=== PATIENT | female | born 1955 | race Caucasian/White ===

== ENCOUNTER 2016-08-26 16:04 | Emergency (ER) | payer OTHER, MEDICAID ==
[2015-07-27 11:59] VITALS: Ht 152.4 cm; Wt 108.9 kg
[~2016-08-26] VITALS: Ht 152.4 cm; Wt 108.9 kg
[2016-08-26 16:04] VITALS: BP 203/91; PULSE 79; RESP 14; TEMP 98; O2SAT 96
[~2016-08-26 16:04] MED LIST: CARV6.2554 PO; CEPH-568 PO; FURO-150 PO; GLIP10TA11 PO; GLU500 PO; NOR10 PO; VALS160T2 PO
[2016-08-26] MEDS ORDERED: cloNIDine HCL 0.1 MG TABLET PO ONE (16:30)
[2016-08-26 16:42] LABS: EOSINOPHILS # (AUTO) 0.3 K/uL (0.0-0.4); EOSINOPHILS % (AUTO) 3.3 % (0.0-4.0); MONOCYTES # (AUTO) 0.5 K/uL (0.0-1.0); RED CELL DISTRIBUTION WIDTH 13.2 % (9.0-15.0)
[2016-08-26 16:47] LABS: CREATININE 1.24 mg/dL (0.55-1.30); POTASSIUM 4.5 mmol/L (3.5-5.1)
[2016-08-26 16:48] LABS: BASOPHILS % (AUTO) 0.3 % (0.0-2.0); HEMATOCRIT 32.5 % (36-48); LYMPHOCYTES # (AUTO) 2.5 K/uL (1.0-5.5); LYMPHOCYTES % (AUTO) 27.9 % (20.5-51.5); MEAN CORPUSCULAR HEMOGLOBIN 28 pg (27-31); MEAN CORPUSCULAR HGB CONC 34 % (32-36); MEAN CORPUSCULAR VOLUME 81 fL (79.0-98.0); MONOCYTES % (AUTO) 5.4 % (1.7-9.3); NEUTROPHILS # (AUTO) 5.5 K/uL (1.8-7.7); NEUTROPHILS % (AUTO) 63.1 % (40.0-70.0); RED BLOOD CELL COUNT(AUTO) 4.01 MIL/uL (4.2-6.2); WHITE BLOOD COUNT (AUTO) 8.8 K/uL (4.8-10.8)
[2016-08-26 16:49] LABS: INR 0.9 (0.8-1.2); PLATELET COUNT (AUTO) 251 K/uL (130-430); PROTHROMBIN TIME 9.6 SECS (9.5-12.5)
[2016-08-26 16:51] LABS: ALBUMIN 2.1 g/dL (3.4-4.8); TOTAL BILIRUBIN 0.3 mg/dL (0.0-1.0); TOTAL PROTEIN, SERUM 6.1 g/dL (6.4-8.3)
[2016-08-26] MEDS ORDERED: BACITRACIN 1 GM OINT TP ONE (17:15)
[2016-08-26 19:03] VITALS: BP 165/81; PULSE 72; RESP 18
== END 2016-08-26 18:50 | disposition home or self-care (01) ==
LOC: SED 16:04
DX: L03.115 Cellulitis of right lower limb (principal); E11.9 Type 2 diabetes mellitus without complications; I10 Essential (primary) hypertension
CPT/HCPCS: 36415; 73590-TC; 80053; 85025; 85610-TC; 85730-TC; 99285

== ENCOUNTER 2016-11-03 14:50 | Emergency (ER) | payer OTHER, MEDICAID ==
[~2016-11-03] VITALS: Ht 152.4 cm; Wt 72.6 kg
[~2016-11-03 14:50] MED LIST changes: -CEPH-568 PO; -VALS160T2 PO
[2016-11-03 14:54] VITALS: BP_SYST 197
[2016-11-03 16:18] LABS: BASOPHILS % (AUTO) 0.4 % (0.0-2.0); EOSINOPHILS # (AUTO) 0.1 K/uL (0.0-0.4); EOSINOPHILS % (AUTO) 1.9 % (0.0-4.0); HEMATOCRIT 30.8 % (36-48); HEMOGLOBIN 9.9 g/dL (12.0-16.0); LYMPHOCYTES # (AUTO) 1.7 K/uL (1.0-5.5); LYMPHOCYTES % (AUTO) 29.5 % (20.5-51.5); MEAN CORPUSCULAR HEMOGLOBIN 26 pg (27-31); MEAN CORPUSCULAR HGB CONC 32 % (32-36); MEAN CORPUSCULAR VOLUME 80 fL (79.0-98.0); MONOCYTES # (AUTO) 0.3 K/uL (0.0-1.0); NEUTROPHILS # (AUTO) 3.7 K/uL (1.8-7.7); NEUTROPHILS % (AUTO) 63.2 % (40.0-70.0); PLATELET COUNT (AUTO) 266 K/uL (130-430); RED BLOOD CELL COUNT(AUTO) 3.83 MIL/uL (4.2-6.2); RED CELL DISTRIBUTION WIDTH 13.6 % (9.0-15.0); WHITE BLOOD COUNT (AUTO) 5.8 K/uL (4.8-10.8)
[2016-11-03 16:22] LABS: CALCIUM 8.3 mg/dL (8.4-11.0); CREATININE 1.53 mg/dL (0.55-1.30)
[2016-11-03 16:26] LABS: ALBUMIN 1.7 g/dL (3.4-4.8); TOTAL BILIRUBIN 0.1 mg/dL (0.0-1.0); TOTAL PROTEIN, SERUM 5.3 g/dL (6.4-8.3)
[2016-11-03] MEDS ORDERED: BACITRACIN 1 GM OINT TP ONE (18:37)
[2016-11-03 21:30] VITALS: BP_SYST 170
== END 2016-11-03 21:30 | disposition home or self-care (01) ==
LOC: SED 14:50
DX: L03.115 Cellulitis of right lower limb (principal); J44.9 Chronic obstructive pulmonary disease, unspecified; E11.9 Type 2 diabetes mellitus without complications; I10 Essential (primary) hypertension; Z86.79 Personal history of other diseases of the circulatory system
CPT/HCPCS: 36415; 80053; 83605; 85025; 87040-TC; 93970; 99285

== ENCOUNTER 2017-03-01 20:06 | Inpatient (IN) | payer OTHER, MEDICAID ==
[~2017-03-01] VITALS: Ht 152.4 cm; Wt 111.1 kg
--- NOTE | 2017-03-01 20:08 | NUR ---
Placed in room 1. Placed on media monitor, blood pressure machine and pulse oximeter. To gown for exam. Side rails up. Report given to Gurpreet JACKSON.
[2017-03-01 20:10] VITALS: BP_SYST 185
--- NOTE | 2017-03-01 20:10 | NUR ---
Pt states having nonradiating pain in chest area for approximately 1 hour prior to ER visit. Pt states pain at time of incident was 10/10, but currently denies chest pain and SOB. Pt AAOx4. Skin breakdown noted to bilateral lower extremities, +2 pitting edema noted bilaterally. Pt denies any other complaints.
--- NOTE | 2017-03-01 20:11 | NUR ---
ER Dr. Bronson at bedside examining patient.
--- NOTE | 2017-03-01 20:36 | NUR ---
# 22 gauge angiocath placed to left forearm. Use of asceptic technique. Blood return noted. Flushed with 10 cc of normal saline. No evidence of infiltration noted. Patient tolerated well.
[2017-03-01 20:40] LABS: BASOPHILS % (AUTO) 0.6 % (0.0-2.0); EOSINOPHILS # (AUTO) 0.3 K/uL (0.0-0.4); EOSINOPHILS % (AUTO) 3.8 % (0.0-4.0); HEMATOCRIT 30.5 % (36-48); HEMOGLOBIN 9.6 g/dL (12.0-16.0); LYMPHOCYTES # (AUTO) 1.9 K/uL (1.0-5.5); LYMPHOCYTES % (AUTO) 25.9 % (20.5-51.5); MEAN CORPUSCULAR HEMOGLOBIN 26 pg (27-31); MEAN CORPUSCULAR HGB CONC 32 % (32-36); MEAN CORPUSCULAR VOLUME 82 fL (79.0-98.0); MONOCYTES # (AUTO) 0.4 K/uL (0.0-1.0); MONOCYTES % (AUTO) 5.5 % (1.7-9.3); NEUTROPHILS # (AUTO) 4.7 K/uL (1.8-7.7); NEUTROPHILS % (AUTO) 64.2 % (40.0-70.0); PLATELET COUNT (AUTO) 337 K/uL (130-430); RED BLOOD CELL COUNT(AUTO) 3.72 MIL/uL (4.2-6.2); RED CELL DISTRIBUTION WIDTH 14.1 % (9.0-15.0); WHITE BLOOD COUNT (AUTO) 7.3 K/uL (4.8-10.8)
[2017-03-01 20:44] LABS: INR 0.9 (0.8-1.2); PROTHROMBIN TIME 9.8 SECS (9.5-12.5)
[2017-03-01 20:45] LABS: CALCIUM 8.4 mg/dL (8.4-11.0); CREATININE 1.85 mg/dL (0.55-1.30); POTASSIUM 4.2 mmol/L (3.5-5.1)
[2017-03-01 20:49] LABS: ALBUMIN 1.8 g/dL (3.4-4.8); TOTAL BILIRUBIN 0.2 mg/dL (0.0-1.0)
[2017-03-01] MEDS ORDERED: LABETALOL 100 MG/ 20ML VIAL IVP ONE (21:00)
[2017-03-01 21:35] LABS: BILIRUBIN,URINE NEGATIVE (NEGATIVE); BLOOD, URINE 2+ (NEGATIVE); CLARITY/URINE HAZY (CLEAR); COLOR,URINE YELLOW (YELLOW); GLUCOSE,URINE 2+ (NEGATIVE); KETONES,URINE NEGATIVE (NEGATIVE); NITRITE, URINE NEGATIVE (NEGATIVE); PH,URINE 5.5 (5.0-8.0); PROTEIN URINE 3+ (NEGATIVE); UROBILINOGEN,URINE 0.2 (0.2-1.0)
[2017-03-01 21:38] LABS: LEUKOCYTE ESTERASE ,URINE 2+ (NEGATIVE)
[2017-03-01 21:46] LABS: BACTERIA,URINE FEW /HPF (None Seen); MUCUS,URINE None Seen /LPF (None Seen); RBC,URINE NONE SEEN /HPF (0-3); WBC,URINE 20-50 /HPF (0-3); YEAST,URINE Moderate /HPF (None Seen)
--- NOTE | 2017-03-01 22:08 | NUR ---
Patient stable, denies any complaints at this time.
[2017-03-01] MEDS ORDERED: NS 500 ML IV ONE (22:15)
[2017-03-01] MEDS ORDERED: cefTRIAXone 1 GM in D5W 50 ML IV ONE (22:15)
[2017-03-01] MEDS ORDERED: cefTRIAXone 1 GM VIAL ONE (22:22)
--- NOTE | 2017-03-01 23:01 | NUR ---
Medication reconciliation completed with information provided by patient. Patient denies taking any home medications for approximately 1 month.
--- NOTE | 2017-03-01 23:53 | NUR ---
Patient will be admitted to care of Dr. Boothe. Admitted to tele unit. Will go to room 117 A. Belongings list completed. Summary report printed. Report given to RENETTA Correa.
[2017-03-01 23:59] VITALS: BP_SYST 191
--- NOTE | 2017-03-01 23:59 | NUR ---
ADMISSION NOTE Received patient from ER via gurbernarda, received report from RN. Patient admitted with diagnosis of CHEST PAIN. Patient oriented to hospital routine, call light, toileting and safety-patient verbalized understanding.
[2017-03-02] MEDS ORDERED: 0.45% NACL 1,000 ML IV SCH
--- NOTE | 2017-03-02 00:20 | NUR ---
PATIENT RECEIVED FROM ADMITTING RN Patient came from ER alert, oriented X4. Son is at the bed side. She complained of chest pain "8/10", but by the time the nurse finished with accessing the pain only, the pain had subsided. BP was 191/93, re-measured: 185/76. The nurse will call the doctor for BP and pain medications, as well as diet order. IVF NS will be hung to run at 100cc/hr per MD order. Patient has multiple small wounds/ruptured blisters on her lower legs. Pictures will be taken. Fall precautions in place.
--- NOTE | 2017-03-02 01:14 | NUR ---
PAGED: I PAGED DR. OCHOA @[phone] I SPOKE WITH SIOMARA LEI CALLED BACK @ [phone]
[2017-03-02] MEDS ORDERED: MORPHINE 2 MG/ML INJ. SYRINGE IVP PRN (01:30)
--- NOTE | 2017-03-02 01:39 | NUR ---
Cardio Consultation Paged Reason for consultation: Chest Pain Was consult called: Yes Person who was notified: Public Relations Sales [employer] 22 Consulting Physician: Dr Mejia; Dr Brand is on-call Inspector Advanced Composite Inspector Advanced Composite Specialty: Cardiology Ordered By: Dr Boothe
[2017-03-02] MEDS: cloNIDine HCL 0.1 MG TABLET PO PRN ×3 (02:06→19:54)
--- NOTE | 2017-03-02 02:30 | NUR ---
ROUNDS Patient in bed sleeping in sitting position. Per patient she has a history of macular degeneration and she is not supposed to lay down flat, because that would increase her eye pressure and some blood vessels might rupture (her doctor's words). No pain noted, no respiratory distress. Addendum: 03/02/17 at 0832 by Lisa Marte RN Dr. Gillette was paged re: BP and pain medication. He ordered Clonidine 0.1 mg q4h PRN for systolic BP>160 and morphine 1 mg q6h PRN for severe pain 7-10
--- NOTE | 2017-03-02 03:30 | NUR ---
BP IS LOWER The nurse re-measured the BP and the BP (after Clonidine PRN administration earlier) was 154/71, HR 78. No pain noted. The patient asked for sandwich, the nurse provided wheat sandwich and a sugar free jello.
[2017-03-02 04:36] VITALS: BP_SYST 154
--- NOTE | 2017-03-02 05:40 | NUR ---
ROUNDS Patient in bed sleeping. No pain or distress noted. Fall precautions in place.
--- NOTE | 2017-03-02 08:00 | NUR ---
AM Initial Notes AM Initial Notes Pt aaox4 with no complaints of pain or discomfort. No distress noted. cementer in place. Bilateral lower legs appear edematous with some lesions and little wounds weeping. Kept legs elevated on a pillow with heels floating. Fall and safety precautions enforced. Encouraged to call for assistance. Call light within reach. Will monitor.
[2017-03-02 08:21] VITALS: BP_SYST 167
--- NOTE | 2017-03-02 08:31 | NUR ---
Catapres Medicated patient with Catapres for elevated blood pressure 167/74. Will continue to monitor.
--- NOTE | 2017-03-02 08:43 | NUR ---
CLOSING NOTE Patient in bed resting. No pain or distress noted. IVF NS at 100 cc/hr running smoothly. Report given to the day shift nurse.
[2017-03-02] MEDS: ASPIRIN 81 MG TAB.CHEW PO SCH (09:17)
--- NOTE | 2017-03-02 09:21 | NUR ---
Nutrition Update Gregory Scale 16 noted. Pt admitted for chest pain and UTI. Diet: [facility] BMI: 43.4 kg/m2 RD to follow per nutrition care standards.
--- NOTE | 2017-03-02 09:46 | NUR ---
Dr. Sunday TODD doing rounds. Plan of care discussed.
--- NOTE | 2017-03-02 10:00 | NUR ---
Rounds Pt awake resting in bed. No complaints of pain or discomfort. Will continue to monitor.
[2017-03-02 10:24] LABS: CHOLESTEROL 152 mg/dL (<200); HDL CHOLESTEROL 48 mg/dL (>55); LDL CHOLESTEROL 83 mg/dL (<100); TRIGLYCERIDES 187 mg/dL (30-150)
[2017-03-02 11:30] VITALS: BP_SYST 158
--- NOTE | 2017-03-02 12:00 | NUR ---
rn round Pt awake resting in bed. No complaints of pain or discomfort at this time. Will continue to monitor.
[2017-03-02] MEDS: ENOXAPARIN SODIUM 30 MG/0.3 ML SYRINGE SUBCUT SCH (13:26)
[2017-03-02 16:02] VITALS: BP_SYST 116; BP_SYST 150
[2017-03-02 19:45] VITALS: BP_SYST 189
--- NOTE | 2017-03-02 19:49 | NUR ---
End of shift note Patient in bed A,OX4. No pain or distress noted,npo after mn and no caffein drink for stress test tomorrow, will indorse care for next shift .
--- NOTE | 2017-03-02 19:56 | NUR ---
Opening note patient in bed. alert and verbal. denies any acute distress. initial assessment reveals elevated BP. BP given with no adverse effetxcs. Safety precautions maintained. Will continue to monitor.
--- NOTE | 2017-03-02 21:45 | NUR ---
medication note Patient in bed. Family by beside. physician called at 2140 hrs to to give order for accu checks, IV fluids and sliding insulin. Safety measures in place. continue to monitor
[2017-03-02] MEDS: cefTRIAXone 1 GM in D5W 50 ML IV SCH (22:27)
--- NOTE | 2017-03-02 22:35 | NUR ---
medication note Pt insulin and antibiotic given. no adverse effects noted. SE explained. Pt verbalizes understanding. Will continue to monitor
[2017-03-02] MEDS: D5NS 1,000 ML IV SCH (22:46)
[2017-03-02] MEDS: INSULIN ASPART 100 UNITS/ML, 10 ML VIAL (NovoLOG) SUBCUT PRN (22:47)
[2017-03-03] VITALS (7 sets, daily range): BP systolic 150–179
[2017-03-03] MEDS: cloNIDine HCL 0.1 MG TABLET PO PRN (00:50)
--- NOTE | 2017-03-03 00:50 | NUR ---
RN rounds pt is bed. vital signs assessment reveal elevated BP. PRN klonodin given Side effects explained to patient. pt verbalizes understanding. Patient continues to be NPO. Pt repositioned for comfort. Safety measure in place. Call light within reach. Continues to monitor.
--- NOTE | 2017-03-03 03:20 | NUR ---
RN round Patient in bed comfortably sleeping. No signs of distress noted. Safety precautions in place. call light within reach. Will continue to monitor
--- NOTE | 2017-03-03 06:48 | NUR ---
Closing note Pt scheduled for stress test this AM, consent forms signed in chart.. pt stayed NPO since midnight. Acc checks orders received. Safety precautions upheld during shift. No injury was incurred during shift. pain denied any chest pain during shift. Will endorse to next shift.
--- NOTE | 2017-03-03 08:07 | NUR ---
INATAL SHIFT NOTE Pt aaox4 with no complaints of pain or discomfort. No distress noted. threat monitoring analyst in place.npo for stress test. Bilateral lower legs appear edematous with some lesions and little wounds weeping. Kept legs elevated on a pillow with heels floating. Fall and safety precautions enforced. Encouraged to call for assistance. Call light within reach. Will monitor.
[2017-03-03] MEDS ORDERED: REGADENOSON 0.4 MG/5 ML SYRINGE IVP ONE (09:00)
[2017-03-03] MEDS: LISINOPRIL 5 MG TABLET PO SCH (10:06)
[2017-03-03] MEDS: ENOXAPARIN SODIUM 30 MG/0.3 ML SYRINGE SUBCUT SCH (10:06)
[2017-03-03] MEDS: ASPIRIN 81 MG TAB.CHEW PO SCH (10:07)
[2017-03-03] MEDS: amLODIPine BESYLATE 5 MG TABLET PO SCH (10:07)
--- NOTE | 2017-03-03 12:00 | NUR ---
RN round Patient in bed . No signs of distress noted. Safety precautions in place. call light within reach. Will continue to monitor
[2017-03-03] MEDS: INSULIN ASPART 100 UNITS/ML, 10 ML VIAL (NovoLOG) SUBCUT PRN ×2 (12:10→17:24)
[2017-03-03] MEDS ORDERED: CARVEDILOL 6.25 MG TABLET (COREG) PO ONE (13:15)
--- NOTE | 2017-03-03 14:00 | NUR ---
RN round Patient in bed comfortably sleeping. No signs of distress noted. Safety precautions in place. call light within reach. Will continue to monitor.
[2017-03-03] MEDS: D5NS 1,000 ML IV SCH (17:19)
--- NOTE | 2017-03-03 18:03 | NUR ---
End of shift note Patient in bed A,OX4. No pain or distress noted,family at bed side.all need meat throughout the shift. will indorse care for next shift .
--- NOTE | 2017-03-03 19:30 | NUR ---
notes received the pt from the day nurse.pt a/a/ox4 no c/o pain orSOB iv to lt forearm intact ,no redness or swelling noted.monitor in place and shows SR,pt with 3 plus edema to lower extremities call light within reach,safety measures in progress.continue to monitor.
--- NOTE | 2017-03-03 21:30 | NUR ---
notes pt watching tv with no complaints.accucheck was 198,no insulin needed per s/s.
[2017-03-03] MEDS: CARVEDILOL 6.25 MG TABLET (COREG) PO SCH (21:48)
[2017-03-03] MEDS: cefTRIAXone 1 GM in D5W 50 ML IV SCH (23:08)
--- NOTE | 2017-03-03 23:17 | NUR ---
notes pt resting with no complaints.call light within reach.continue to monitor.
[2017-03-04] VITALS (7 sets, daily range): BP systolic 143–193
--- NOTE | 2017-03-04 01:30 | NUR ---
notes pt sleeping,call light within reach.continue to monitor.
--- NOTE | 2017-03-04 03:32 | NUR ---
notes pt awaken and repositioned with pillow support.no c/o chest pain or sob.continue to monitor.
--- NOTE | 2017-03-04 05:09 | NUR ---
notes pt sleeping,call light within reach,continue to monitor.
[2017-03-04] MEDS: INSULIN ASPART 100 UNITS/ML, 10 ML VIAL (NovoLOG) SUBCUT PRN ×4 (06:18→21:20)
--- NOTE | 2017-03-04 06:41 | NUR ---
CLOSING NOTES PT AWAKE ,ALERT NO C/O PAIN OR SOB.ACCUCHECK WAS 283,INSULIN GIVEN PER S/S.WILL ENDORSE THE CARE OF THE PT TO THE DAY NURSE.
[2017-03-04] MEDS: D5NS 1,000 ML IV SCH ×2 (07:35→12:58)
--- NOTE | 2017-03-04 07:55 | NUR ---
AM ROUNDS: Patient is oriented x4. Denies chest pain. Breathing is even, non labored. Patient is aware that she is receiving IV Rocephin for the treatment of UTI. IV on the left wrist is infiltrated, stopped IV infusion, wants IV inserted after breakfast. Bilateral lower extremities are elevated on a pillow. Noted with erythema, swollen with 3+ edema. Legs noted with discoloration and blisters in the left leg. Patient states its a chronic problem for her and she has home health nurse for wound care. Call light within reach.
[2017-03-04] MEDS: ENOXAPARIN SODIUM 30 MG/0.3 ML SYRINGE SUBCUT SCH (09:06)
[2017-03-04] MEDS: ASPIRIN 81 MG TAB.CHEW PO SCH (09:06)
[2017-03-04] MEDS: amLODIPine BESYLATE 5 MG TABLET PO SCH (09:07)
[2017-03-04] MEDS: CARVEDILOL 6.25 MG TABLET (COREG) PO SCH (09:07)
[2017-03-04] MEDS: LISINOPRIL 5 MG TABLET PO SCH (09:07)
--- NOTE | 2017-03-04 09:27 | NUR ---
IV site start: Inserted gauge 22 on the right arm with blood return on first attempt. IV fluids resumed. Old IV removed and covered with 2x2. No bleeding noted.
--- NOTE | 2017-03-04 11:30 | NUR ---
Rounds: Assisted with bedpan. Skin on the buttocks is intact. Able to turn to sides without assist..
--- NOTE | 2017-03-04 13:30 | NUR ---
Rounds: Patient is resting. No signs of complaints of pain at this time
--- NOTE | 2017-03-04 15:04 | NUR ---
Dietitian Recommendations * [facility] per LP, RD Please refer to Nutrition Assessment for details.
[2017-03-04] MEDS: cloNIDine HCL 0.1 MG TABLET PO PRN (16:05)
[2017-03-04 17:10] LABS: ALBUMIN 1.6 g/dL (3.4-4.8); CALCIUM 7.7 mg/dL (8.4-11.0); CREATININE 1.9 mg/dL (0.55-1.30); POTASSIUM 4.4 mmol/L (3.5-5.1)
[2017-03-04] MEDS: hydrALAZINE HCL 20 MG/ML VIAL IVP PRN (17:31)
--- NOTE | 2017-03-04 17:34 | NUR ---
Elevated BP: BP is 171/73, hydralazine 10 mg IVP given.
[2017-03-04 17:50] LABS: TOTAL BILIRUBIN 0.1 mg/dL (0.0-1.0)
--- NOTE | 2017-03-04 18:08 | NUR ---
End of Shift: Needs attended. No change in assessment.
--- NOTE | 2017-03-04 19:20 | NUR ---
PM assessment and report Patient awake, alert, oriented x4. Sitting up in bed watching television. Patient denies any chest pain at this time. Bed alarm on and in lowest position.
[2017-03-04] MEDS: CARVEDILOL 12.5 MG TABLET (COREG) PO SCH (21:14)
[2017-03-04] MEDS: cefTRIAXone 1 GM in D5W 50 ML IV SCH (21:20)
--- NOTE | 2017-03-04 22:06 | NUR ---
Rounds Patient awake and alert, in bed watching television. Patient family at bedside for support. Patient denies any discomfort or pain. Cristhian heels offloading and patient turned to side. Bed alarm on and encourage patient to use call light which is near patient.
--- NOTE | 2017-03-04 23:24 | NUR ---
Rounds Patient resting in bed at this time. Patient denies any discomfort or pain. HOB elevated for comfort and heels offloaded with pillow. Bed alarm on, in lowest position.
[2017-03-05] VITALS: BP_SYST 155
--- NOTE | 2017-03-05 01:00 | NUR ---
Rounds Patient family at bedside for comfort. Repositioned patient and pulled up in bed. Patient denies any pain, heels offloading and feet of bed elevated for comfort. Bed in lowest position with alarm on.
[2017-03-05] MEDS: D5NS 1,000 ML IV SCH ×3 (01:09→18:50)
--- NOTE | 2017-03-05 03:00 | NUR ---
Rounds Patient asleep in bed at this time. Bed in lowest position with alarm on. Family member at bedside for support and comfort.
[2017-03-05 03:32] VITALS: BP_SYST 152
--- NOTE | 2017-03-05 05:00 | NUR ---
Rounds Patient resting at this time. Denies any pain. Bed in lowest position with bed alarm.
--- NOTE | 2017-03-05 06:18 | NUR ---
Closing notes Patient awake, alert, oriented x4. Blood sugar checked 194, no coverage.
[2017-03-05 08:23] VITALS: BP_SYST 171
--- NOTE | 2017-03-05 08:25 | NUR ---
INITIAL NOTE RECEIVED PT AAOX4 IN NO ACUTE DISTRESS. DENIES ANY CP AT THIS TIME. TELE NSR ON THE MONITOR. IVF INFUSING WELL INTO RT FA, NO S/S OF INFILTRATION NOTED. PT'S SON AT BEDSIDE AT THIS TIME. DISCUSSED WITH PT POC FOR THE DAY INCLUDING MEDICATIONS, WOUND CARE CONSULT AND PENDING RESULTS FOR THE CAL SCAN. PT VERBALIZED UNDERSTANDING. BED IN LOWEST POSITION WITH SIDE RAILS UP X2 AND CALL LIGHT WITHIN REACH. PT ENCOURAGED TO USE CALL LIGHT FOR ASSISTANCE. VERBALIZED UNDERSTANDING
[2017-03-05] MEDS: ASPIRIN 81 MG TAB.CHEW PO SCH (08:52)
[2017-03-05] MEDS: CARVEDILOL 12.5 MG TABLET (COREG) PO SCH ×2 (08:53→22:24)
[2017-03-05] MEDS: amLODIPine BESYLATE 10 MG TABLET PO SCH (08:53)
[2017-03-05] MEDS: ENOXAPARIN SODIUM 30 MG/0.3 ML SYRINGE SUBCUT SCH (08:54)
[2017-03-05] MEDS: LISINOPRIL 5 MG TABLET PO SCH (08:54)
--- NOTE | 2017-03-05 11:16 | NUR ---
ROUNDS PT NOTED TO BE SLEEPING AT THIS TIME IN NO ACUTE DISTRESS. IVF INFUSING WELL. CALL PLACED TO DR. ROMAN REGARDING POSITIVE CAL SCAN RESULTS. WILL WAIT FOR RETURN CALL. BED IN LOWEST POSITION WITH SIDE RAILS UP X3 AND CALL LIGHT WITHIN REACH. WILL CONTINUE TO MONITOR
[2017-03-05 12:00] VITALS: BP_SYST 183
[2017-03-05] MEDS: hydrALAZINE HCL 20 MG/ML VIAL IVP PRN (12:06)
[2017-03-05] MEDS: INSULIN ASPART 100 UNITS/ML, 10 ML VIAL (NovoLOG) SUBCUT PRN ×3 (12:08→22:38)
--- NOTE | 2017-03-05 12:47 | NUR ---
ROUNDS PT SITTING UP EATING LUNCH AT THIS TIME IN NO ACUTE DISTRESS. DENIES AT CP AT THIS TIME. CALL LIGHT WITHIN REACH. ENCOURAGED PT TO USE CALL LIGHT FOR ASSISTANCE. VERBALIZED UNDERSTANDING
--- NOTE | 2017-03-05 15:03 | NUR ---
ROUNDS PT SITTING UP WATCHING TELEVISION, NOTED TO BE CRYING. PT STATED SEATER ASSEMBLER SAW HER AND TOLD HER THAT HER LEXISCAN WAS ABNORMAL. PT STATES SHE IS VERY SCARED AND FEELS THAT EVERYTHING IS GOING WRONG. SAT WITH PT AND PROVIDED EMOTIONAL SUPPORT.
[2017-03-05 15:59] LABS: CALCIUM 7.9 mg/dL (8.4-11.0); CREATININE 1.88 mg/dL (0.55-1.30); POTASSIUM 4.3 mmol/L (3.5-5.1); TOTAL BILIRUBIN 0.1 mg/dL (0.0-1.0)
[2017-03-05 16:08] LABS: ALBUMIN 1.5 g/dL (3.4-4.8)
--- NOTE | 2017-03-05 16:11 | NUR ---
ROUNDS PT SITTING UP IN BED WATCHING TV AT THIS TIME. DENIES ANY CP, JUST ANXIOUS ABOUT ANGIOGRAM. EMOTIONAL SUPPORT PROVIDED.
--- NOTE | 2017-03-05 16:11 | NUR ---
CONSULT RENAL RENAL FAILURE DR LEI [phone] S/W [facility]ERESE OFFICE @ 1768
[2017-03-05 17:20] VITALS: BP_SYST 165
--- NOTE | 2017-03-05 18:40 | NUR ---
CLOSING NOTE PT HAVING RENAL ULTRASOUND AT THIS TIME. SON AT BEDSIDE. DISCUSSED POC WITH PT AND SON INCLUDING RENAL CONSULT AND POSSIBLE NEED FOR TRANSFER TO ANOTHER HOSPITAL FOR ANGIOGRAM IF NEEDED. PT AND SON VERBALIZED UNDERSTANDING. PT DENIES ANY CP AT THIS TIME. CALL LIGHT WITHIN REACH. PT ENCOURAGED TO USE CALL LIGHT FOR ASSISTANCE. VERBALIZED UNDERSTANDING. WILL ENDORSE TO NOC SHIFT.
[2017-03-05 20:00] VITALS: BP_SYST 178
--- NOTE | 2017-03-05 20:00 | NUR ---
INITIAL NOTE Pt awake and alert in no apparent distress. Sitting in bed with son at bedside. IV running well to R FA at 90mls/hr. Call sanchez within reach. Encouraged pt to use call sanchez when in need. Verbalized understanding. Will continue to monitor.
[2017-03-05] MEDS ORDERED: ACETYLCYSTEINE 20% 800 MG/4 ML VIAL (ORAL) PO ONE (22:15)
--- NOTE | 2017-03-05 22:15 | NUR ---
ROUNDS Pt awake and alert. Watching television in no distress. Repositioned legs for comfort. Refilled water pitcher per pts request. Discussed with pt possibility of transfer to another hospital for angiogram. Pt verbalized understanding. Will continue to monitor.
[2017-03-05] MEDS: hydrALAZINE HCL 10 MG TABLET PO SCH (22:25)
[2017-03-05] MEDS: cefTRIAXone 1 GM in D5W 50 ML IV SCH (22:25)
[2017-03-05] MEDS ORDERED: FUROSEMIDE 111.11 MG in D5W 90 ML IV SCH (23:30)
[2017-03-06] VITALS (7 sets, daily range): BP systolic 132–173
--- NOTE | 2017-03-06 00:10 | NUR ---
Notes recently visited patient. New iV inserted to RW 22G. Patient recently started on Lasix drip 5mg/hr and albumin(x 3 doses). Per Cath scheduled in [facility] will be postponed 1-2 days until edema is resolved- patient and family made aware. Patient denies pain at this time. NO SOB noted. Call light within reach. Will continue to monitor.
[2017-03-06] MEDS ORDERED: FUROSEMIDE IV SCH (00:45)
[2017-03-06] MEDS ORDERED: D5W IV SCH (00:45)
[2017-03-06] MEDS ORDERED: FUROSEMIDE 40 MG/4 ML VIAL ONE (00:56)
[2017-03-06] MEDS: ALBUMIN HUMAN 25% 50 ML IV SCH ×3 (01:16→11:52)
[2017-03-06] MEDS: hydrALAZINE HCL 20 MG/ML VIAL IVP PRN (01:22)
[2017-03-06] MEDS ORDERED: FUROSEMIDE 100 MG in D5W 90 ML IV SCH (01:30)
--- NOTE | 2017-03-06 02:15 | NUR ---
Notes Patient sleeping at this time. No s/s of pain or discomfort noted. No SOB noted. IV site patent, flushes well, infusing lasix drip as ordered. Patient assisted in using bedpan, voided adequate urine. Call light within reach. Will continue to monitor.
--- NOTE | 2017-03-06 04:30 | NUR ---
Notes Patient sleeping at this time. No s/s of pain or discomfort noted. No SOB noted. Son at bedside. Call light within reach. Will continue to monitor.
--- NOTE | 2017-03-06 06:34 | NUR ---
Closing Notes Patient recently repositioned in bed. Accucheck done, no insulin coverage needed. No s/s of hypo/hyperglycemia. No SOB noted. IV site patent, flushes well, infusing Lasix and albumin as ordered. Call light within reach. Will continue to monitor.
[2017-03-06 07:23] LABS: ALBUMIN 1.7 g/dL (3.4-4.8); CALCIUM 8.1 mg/dL (8.4-11.0); CREATININE 1.86 mg/dL (0.55-1.30); POTASSIUM 4.2 mmol/L (3.5-5.1); THYROID STIMULATING HORMONE 3.18 uIu/mL (0.34-4.82); TOTAL BILIRUBIN 0.1 mg/dL (0.0-1.0)
--- NOTE | 2017-03-06 08:00 | NUR ---
OPENING NOTES PATIENT IS SITTING UP IN BED EATING BREAKFAST. BOTH LOWER EXTREMITIES HAVE CELLULITIS AND PATIENT COMPLAINS OF PAIN OF 9/10. GENERALIZED EDEMA NOTED THROUGHOUT. IV ACCESS ON THE RIGHT FOREARM WITH LASIX AND ALBUMIN INFUSING. PATIENT DOES NOT HAVE CHEST PAIN OR ANY DIFFICULTY BREATHING. CALL LIGHT IS WITHIN REACH AND INFORMED TO NOTIFY FOR ASSISTANCE. SAFETY PRECAUTIONS ARE BEING OBSERVED AND WILL MONITOR ON ROUNDS.
[2017-03-06] MEDS: hydrALAZINE HCL 10 MG TABLET PO SCH ×2 (08:51→21:50)
[2017-03-06] MEDS: CARVEDILOL 12.5 MG TABLET (COREG) PO SCH ×2 (08:52→21:51)
[2017-03-06] MEDS: ASPIRIN 81 MG TAB.CHEW PO SCH (08:53)
[2017-03-06] MEDS: ENOXAPARIN SODIUM 30 MG/0.3 ML SYRINGE SUBCUT SCH (08:54)
[2017-03-06] MEDS: amLODIPine BESYLATE 10 MG TABLET PO SCH (08:54)
[2017-03-06] MEDS: ACETYLCYSTEINE 20% 800 MG/4 ML VIAL (ORAL) PO SCH ×2 (08:55→21:49)
--- NOTE | 2017-03-06 09:00 | NUR ---
Fluid restriction Pt Instructed on fluid restriction of 1liter/ day. Pt verbalize understanding
--- NOTE | 2017-03-06 10:00 | NUR ---
ROUNDS PATIENT IS SPEAKING WITH RECEIVER BULK SYSTEM. PATIENT STATES MORPHINE IS WORKING AND WANTS TO SLEEP. NO FURTHER PAIN NOTED OR BREATHING DIFFICULTY. NO CHEST PAIN NOTED. CONTINUED ON LASIX DRIP. PATIENT IS ON 1L/24HR FLUID RESTRICTION. PATIENTS IS AWARE. CALL LIGHT IS WITHIN REACH, AND SAFETY PRECAUTIONS ARE BEING OBSERVED.
[2017-03-06] MEDS: FUROSEMIDE 100 MG in D5W 90 ML IV SCH (10:08)
[2017-03-06] MEDS: INSULIN ASPART 100 UNITS/ML, 10 ML VIAL (NovoLOG) SUBCUT PRN ×3 (11:54→22:05)
--- NOTE | 2017-03-06 12:00 | NUR ---
ROUNDS PATIENT IS AWAKE AND ALERT IN BED WATCHING TV. NO PAIN OR DISCOMFORT NOTED. PATIENT IS WAITING FOR LUNCH TO ARRIVE. CALL LIGHT PLACED IN HER HAND. SAFETY PRECAUTIONS ARE OBSERVED AND WILL CONTINUE TO MONITOR.
--- NOTE | 2017-03-06 12:40 | NUR ---
NURSING NOTE RECEIVED CALL FROM DR OCHOA. CONFIRMED PATIENT WILL STAY UNDER HER CARE.
--- NOTE | 2017-03-06 13:57 | NUR ---
TIFFANIE ATTENDING M.D UNDER THE SERVICE OF DR OCHOA PT REQUESTED DR. OCHOA TO BE HER ATTENDING PHYSICIAN WHILE SHE IS IN HOSPITAL. PT STATED THAT SHE DIDN'T YES TO DR HOOD WHEN SHE WAS ASKED IF HE CAN BE THE ATTENDING PHYSICIAN WHILE IN HOSPITAL.
--- NOTE | 2017-03-06 14:00 | NUR ---
ROUNDS PATIENT IS SLEEPING IN BED. NO COMPLAINTS OF PAIN. ALL NEEDS HAVE BEEN MET. CALL LIGHT WITHIN REACH, BED ALARM IS ON, AND RAILS ARE UP. WILL CONTINUE TO MONITOR ON ROUNDS.
--- NOTE | 2017-03-06 17:50 | NUR ---
Wound Evaluation: Late note for 1749 secondary to patient care. Wound consult request per Dr. Boothe. Thank you, Dr. Boothe, for the consult. Patient is awake, alert, and oriented, and received in a [place] bed with an IsoFlex LYNN mattress. Skin is fair (-). Gregory score is an 15. Patient received in a [place] bed. Past medical history: Diabetes Mellitus, Hypertension, Stasis Dermatitis. Current labs: WBC 7.3, RBC 3.72, hemoglobin 9.6, hematocrit 30.5, chloride 115, BUN 47, creatinine 1.76, calcium 8.3, albumin 2.4. Microbiology: Urine culture negative, blood culture results 2 negative. Intrinsic factors that delay wound healing: Diabetes Mellitus. Extrinsic factors: Decreased mobility. Patient presents with: All wounds below related to venous insufficiency: 1. Right mid medial calf: Wound, present on admission. Wound bed is 100% red tissue. No odor, scant sanguineous drainage. Measures 0.5 cm x 0.2 cm, superficial depth. 2. Right mid posterior calf: Wound, present on admission. Wound bed is 100% pink tissue. No odor, no drainage. Measures 3.0 cm x 5.0 cm, superficial depth. 3. Left lateral calf: Wound, present on admission. Wound bed is 100% pink tissue. No odor, no drainage, dry. Measures I 0.0 cm x 5.7 cm, superficial depth. 4. Left lateral calf, inferior to wound 3: Wound, present on admission. Wound bed is 100% pink tissue. No odor, no drainage, dry. Measures 9.3 cm x 4.0 cm. 5. Left armstrong: Several closed bullae with clear fluid, present on admission. No odor, no drainage. Recommend: Cleanse bilateral lower extremities with normal saline. Pat dry. Put sure prep onto saloni-wounds. Put oil emulsion dressing onto wounds 1 and 4, and any other locations that have drainage, then nonadherent pads. Apply lotion to bilateral feet. Wrap Bilateral lower extremities with Praful wrap, then elastic bandage from end of toes to just below the knees. Also recommend: Encourage and assist patient as needed with repositioning every 2 hours with pillow support, and off-load pressure areas with pillows for pressure re-distribution. Offload, elevate and float bilateral heels with pillows. Perform skin care and monitor skin integrity Q shift. Use moisture barrier cream on buttocks and other moisture susceptible areas QID and as needed for soiling. Encourage patient to elevate bilateral lower extremities.
--- NOTE | 2017-03-06 17:54 | NUR ---
ROUNDS / WOUND CARE PATIENT IS AWAKE WITH HER SON (GABY) AT THE BEDSIDE. SHE IS COMFORTABLE WITH NO COMPLAINTS OF PAIN. SPECIAL AGENT YESI BAKER VIEW AND ASSESSED THE PATIENTS LOWER EXTREMITIES. THEY WERE CLEANED NORMAL SALINE AND LOTION APPLIED TO THE DRY SKIN. OIL EMULSION, NON-ADHERENT DRESSING, AND WRAPPED WITH A NESTOR ROLL AND WITH ELASTIC BANDAGE. PATIENT HAS NO COMPLAINTS AT THIS TIME OR PAIN. SAFETY PRECAUTIONS ARE BEING OBSERVED. WILL MONITOR.
[2017-03-06 18:37] LABS: ALBUMIN 2.4 g/dL (3.4-4.8); CALCIUM 8.3 mg/dL (8.4-11.0); CREATININE 1.76 mg/dL (0.55-1.30); POTASSIUM 4.4 mmol/L (3.5-5.1); TOTAL BILIRUBIN 0.1 mg/dL (0.0-1.0)
--- NOTE | 2017-03-06 18:51 | NUR ---
CLOSING NOTES PATIENT IS IN BED COMFORTABLE. NO COMPLAINTS OF CHEST PAIN THROUGHOUT THE DAY. THE SON IS AT BEDSIDE. ALL NEEDS HAVE BEEN MET. WILL ENDORSE TO THE EVENING SHIFT.
--- NOTE | 2017-03-06 19:50 | NUR ---
INITIAL NOTE Pt awake, alert and oriented in no apparent distress. Denies pain. Breathing easy and unlabored. Voided in bed jackson. Reminded pt of fluid restriction to 1L/24hrs and only to drink whats left in water pitcher. IV to right wrist/hand running Lasix. Fall precautions in place. Call sanchez within reach. Encouraged pt to call for help. Verbalized understanding.
[2017-03-06] MEDS ORDERED: INSULIN GLARGINE 100 UNITS/ML 10 ML VIAL SUBCUT SCH (21:00)
--- NOTE | 2017-03-06 21:40 | NUR ---
ROUNDS Pt awake and alert in no distress. Denies pain. Routine medications administered. Blood sugar 217. Insulin given as prescribed. Pts FA IV possibly infiltrated. Resource nurse to attempt IV reinsertion. Fall precautions in place and call sanchez within reach. Will continue to monitor.
[2017-03-06] MEDS: cefTRIAXone 1 GM in D5W 50 ML IV SCH (22:06)
--- NOTE | 2017-03-07 | NUR ---
NOTES; PT APPEARED TO BE SLEEPING, EYES CLOSED. EASILY AROUSED. NO APPARENT DISTRESS NOTED. DENIES ANY PAIN AT THIS TIME. SAFETY MEASURES IN PROGRESS. Addendum: 03/08/17 at 0349 by Rosa Germain LVN WRONG TIME ENTRY
--- NOTE | 2017-03-07 00:05 | NUR ---
ROUNDS Pt sitting in bed high fowlers with eyes closed. Easily arousable. Denies pain and showing no distress. Attempted IV reinsertion with no success. Will speak to charge nurse regarding need for another IV site for pt. Lasix infusing at 5mls/hr to R wrist. Fall precautions in place and call sanchez within reach. Will continue to monitor.
[2017-03-07 00:07] VITALS: BP_SYST 153
--- NOTE | 2017-03-07 01:25 | NUR ---
IV 22g IV reinserted to left AC. Pt tolerated well. Abx therapy resumed. Son at bedside. D'cd infiltrated IV to right FA. Catheter intact. Call sanchez within reach will continue to monitor.
--- NOTE | 2017-03-07 02:00 | NUR ---
ROUNDS Pt resting with eyes closed in no distress. IV lasix running well at 5mls/hr. Fall precautions in place. Call sanchez within reach. Will continue to monitor.
--- NOTE | 2017-03-07 04:10 | NUR ---
ROUNDS Pt resting with eyes closed in no apparent distress. Breathing easy and unlabored. IV lasix running well. Fall precautions in place. Will continue to monitor.
[2017-03-07 04:51] VITALS: BP_SYST 164
[2017-03-07] MEDS: FUROSEMIDE 100 MG in D5W 90 ML IV SCH ×3 (06:10→23:24)
--- NOTE | 2017-03-07 06:15 | NUR ---
CLOSING NOTE Pt awake, alert and oriented. Lab at bedside drawing morning labs. IV Lasix bag hung at 5mls/hr. Blood sugar checked, 113. Put pt on bedpan, voided x1 clear yellow urine. Daily weights obtained, 245.6lbs. Repositioned pt, call sanchez within reach. Fall precautions in place. Will continue to monitor and endorse to dayshift.
[2017-03-07 06:30] LABS: EOSINOPHILS # (AUTO) 0.3 K/uL (0.0-0.4); HEMATOCRIT 24.3 % (36-48); MONOCYTES # (AUTO) 0.5 K/uL (0.0-1.0)
[2017-03-07 06:35] LABS: CALCIUM 8.4 mg/dL (8.4-11.0); CREATININE 1.73 mg/dL (0.55-1.30); POTASSIUM 4.2 mmol/L (3.5-5.1); TOTAL BILIRUBIN 0.1 mg/dL (0.0-1.0)
[2017-03-07 06:55] LABS: BASOPHILS # (AUTO) 0.1 K/uL (0.0-0.2); BASOPHILS % (AUTO) 0.8 % (0.0-2.0); EOSINOPHILS % (AUTO) 4.9 % (0.0-4.0); HEMOGLOBIN 7.7 g/dL (12.0-16.0); LYMPHOCYTES # (AUTO) 2.1 K/uL (1.0-5.5); LYMPHOCYTES % (AUTO) 32.5 % (20.5-51.5); MEAN CORPUSCULAR HEMOGLOBIN 26 pg (27-31); MEAN CORPUSCULAR HGB CONC 32 % (32-36); MEAN CORPUSCULAR VOLUME 82 fL (79.0-98.0); MONOCYTES % (AUTO) 8.2 % (1.7-9.3); NEUTROPHILS # (AUTO) 3.3 K/uL (1.8-7.7); NEUTROPHILS % (AUTO) 53.6 % (40.0-70.0); PLATELET COUNT (AUTO) 305 K/uL (130-430); RED BLOOD CELL COUNT(AUTO) 2.95 MIL/uL (4.2-6.2); RED CELL DISTRIBUTION WIDTH 14.4 % (9.0-15.0); WHITE BLOOD COUNT (AUTO) 6.3 K/uL (4.8-10.8)
[2017-03-07 08:34] VITALS: BP_SYST 145
--- NOTE | 2017-03-07 08:34 | NUR ---
Nutrition Note Nutrition Consult (Venous Insufficiency Ulcers) received 03/06/17 [id number]. Pt was seen and assessed by RD on 03/04/17. Please refer to Nutrition Assessment for details.
--- NOTE | 2017-03-07 08:35 | NUR ---
INITIAL NOTE RECEIVED PT AAOX4 IN NO ACUTE DISTRESS. DENIES ANY CP OR ANY OTHER PAIN AT THIS TIME. LASIX DRIP INFUSING INTO RT WRIST WITH NO S/S OF INFILTRATION NOTED. PT EDUCATED ON POSSIBLE SIDE EFFECTS OF LASIX DRIP. VERBALIZED UNDERSTANDING. GENERALIZED EDEMA NOTED WITH BLE WRAPPED WITH PB WRAPS. PT STATES HER LEGS FEEL MUCH BETTER SINCE BEING WRAPPED. REINFORCED STRICT I&O WELL 1L FLUID RESTRICTION WITH PT. PT VERBALIZED UNDERSTANDING. NOTED TO BE NSR ON THE MONITOR. BED IN LOWEST POSITION WITH SIDE RAILS UPX3 AND CALL LIGHT WITHIN REACH. PT ENCOURAGED TO USE CALL LIGHT FOR ASSISTANCE. VERBALIZED UNDERSTANDING.
[2017-03-07] MEDS: ENOXAPARIN SODIUM 30 MG/0.3 ML SYRINGE SUBCUT SCH (09:00)
[2017-03-07] MEDS: ASPIRIN 81 MG TAB.CHEW PO SCH (09:46)
[2017-03-07] MEDS: CARVEDILOL 12.5 MG TABLET (COREG) PO SCH ×2 (09:46→21:10)
[2017-03-07] MEDS: hydrALAZINE HCL 10 MG TABLET PO SCH ×2 (09:47→21:09)
[2017-03-07] MEDS: ACETYLCYSTEINE 20% 800 MG/4 ML VIAL (ORAL) PO SCH ×2 (09:48→21:17)
--- NOTE | 2017-03-07 10:00 | NUR ---
LOVENOX HGB NOTED TO BE 7.[address] NOTIFIED TO [address]. OCHOA WHO GAVE ORDERS TO HOLD LOVENOX DOSE THIS MORNING.
[2017-03-07 12:21] VITALS: BP_SYST 129
--- NOTE | 2017-03-07 13:16 | NUR ---
ROUNDS PT SITTING UP IN CHAIR IN NO ACUTE DISTRESS. DENIES ANY PAIN AT THIS TIME. FEELS MUCH BETTER SITTING UP IN CHAIR. LASIX DRIP INFUSING WELL, NO S/S OF INFILTRATION NOTED. CALL LIGHT WITHIN REACH. PT ENCOURAGED TO USE CALL LIGHT FOR ASSISTANCE. VERBALIZED UNDERSTANDING. WILL CONTINUE TO MONITOR
[2017-03-07 14:34] LABS: BASOPHILS % (AUTO) 0.7 % (0.0-2.0); EOSINOPHILS # (AUTO) 0.3 K/uL (0.0-0.4); HEMATOCRIT 26.9 % (36-48); HEMOGLOBIN 8.7 g/dL (12.0-16.0); LYMPHOCYTES # (AUTO) 1.6 K/uL (1.0-5.5); LYMPHOCYTES % (AUTO) 23.7 % (20.5-51.5); MEAN CORPUSCULAR HEMOGLOBIN 27 pg (27-31); MEAN CORPUSCULAR HGB CONC 33 % (32-36); MEAN CORPUSCULAR VOLUME 82 fL (79.0-98.0); MONOCYTES # (AUTO) 0.4 K/uL (0.0-1.0); NEUTROPHILS # (AUTO) 4.4 K/uL (1.8-7.7); NEUTROPHILS % (AUTO) 65.6 % (40.0-70.0); PLATELET COUNT (AUTO) 311 K/uL (130-430); RED BLOOD CELL COUNT(AUTO) 3.28 MIL/uL (4.2-6.2); RED CELL DISTRIBUTION WIDTH 14.1 % (9.0-15.0); WHITE BLOOD COUNT (AUTO) 6.7 K/uL (4.8-10.8)
[2017-03-07] MEDS ORDERED: COMMUNICATION ORDER XX ONE (14:45)
[2017-03-07 14:52] LABS: CALCIUM 8.6 mg/dL (8.4-11.0); CREATININE 1.99 mg/dL (0.55-1.30); POTASSIUM 4.5 mmol/L (3.5-5.1); TOTAL BILIRUBIN 0.2 mg/dL (0.0-1.0)
[2017-03-07] MEDS ORDERED: PANTOPRAZOLE SODIUM 40 MG TAB PO ONE (15:00)
[2017-03-07 15:10] LABS: ALBUMIN 2.2 g/dL (3.4-4.8)
--- NOTE | 2017-03-07 16:28 | NUR ---
ARRANGED ALS (DIETITIAN TEACHING) TRANSPORT WITH [facility] TO [facility] FOR HEART CATH SCHED @ 0900, TOMORROW, 03/08/17. WELFARE ADVISER TIME IS 0630. SPOKE WITH SHANAE
[2017-03-07 16:34] VITALS: BP_SYST 148
[2017-03-07] MEDS: ALBUMIN HUMAN 25% 50 ML IV SCH ×3 (16:45→23:27)
--- NOTE | 2017-03-07 16:48 | NUR ---
CONFIRMED WITH [facility]'S ROLL FORMING SUPERVISOR RE: HEART CATH SCHED FOR 0900 TOMORROW, 03/08/17. SPOKE TO DOLLY FROM ROLL FORMING SUPERVISOR
[2017-03-07] MEDS: INSULIN ASPART 100 UNITS/ML, 10 ML VIAL (NovoLOG) SUBCUT PRN ×2 (17:32→21:13)
--- NOTE | 2017-03-07 18:50 | NUR ---
CLOSING NOTE PT SITTING UP IN CHAIR IN NO ACUTE DISTRESS. DENIES AN CP AT THIS TIME. LASIX IV INFUSING WELL INTO RT HAND, NO S/S OF INFILTRATION NOTED. IST BAG OF ALBUMIN INFUSED WELL INTO LT AC. DISCUSSED WITH PT PLAN [facility]. PT VERBALIZED UNDERSTANDING. CALL LIGHT WITHIN REACH. PT ENCOURAGED TO USE CALL LIGHT FOR ASSISTANCE. VERBALIZED UNDERSTANDING. WILL ENDORSE TO NOC NURSE
[2017-03-07 20:00] VITALS: BP_SYST 148
--- NOTE | 2017-03-07 20:00 | NUR ---
NOTES; Pt ia A/A/O X4. No apparent distress noted. Denies pain. Breathing easy and unlabored. Voided in bed jackson. pt has generalized edema all over body. 3+ pitting edema to bipin feet. Reminded pt of fluid restriction to 1L/24hrs . Pt verbalized understanding. IV to right wrist running Lasix as per MD order. IV to the left AC, patent. Denies any pain at this time. Fall precautions in place. Call sanchez within reach. Encouraged pt to call for help. Verbalized understanding.
[2017-03-07] MEDS: cefTRIAXone 1 GM in D5W 50 ML IV SCH (20:40)
--- NOTE | 2017-03-07 21:21 | NUR ---
MEDS; SCHEDULED PO MEDICATION ADMINISTERED. PT TOLERATED MEDS WELL. BLOOD SUGAR FOUND TO BE 259. INSULIN ADMINISTERED PER SLIDING SCALE ORDER.
--- NOTE | 2017-03-08 | NUR ---
NOTES; PT APPEARED TO BE SLEEPING, EYES CLOSED. EASILY AROUSED. NO APPARENT DISTRESS NOTED. DENIES ANY PAIN AT THIS TIME. SAFETY MEASURES IN PROGRESS.
[2017-03-08 00:57] VITALS: BP_SYST 148
--- NOTE | 2017-03-08 02:00 | NUR ---
NOTES; PT APPEARED TO BE SLEEPING, EYES CLOSED. EASILY AROUSED. NO APPARENT DISTRESS NOTED. DENIES ANY PAIN AT THIS TIME. SAFETY MEASURES IN PROGRESS.
--- NOTE | 2017-03-08 04:00 | NUR ---
NOTES; PT APPEARED TO BE SLEEPING, EYES CLOSED. EASILY AROUSED. NO APPARENT DISTRESS NOTED. DENIES ANY PAIN AT THIS TIME. SAFETY MEASURES IN PROGRESS.
[2017-03-08 04:39] VITALS: BP_SYST 149
[2017-03-08 05:07] VITALS: BP_SYST 148
--- NOTE | 2017-03-08 06:00 | NUR ---
NOTES; BED BATH GIVEN, GOWN CHANGED. LEFT AC, AND RT FOREARM IV INTACT. IV SITE DRESSING CLEAN,DRY AND INTACT. INFORMED TRANSFER CONSENT SIGNED BY PT SON( GABY). BLANCA LOWER XT DRESSING CHANGED AND DRESSING APPLIED PER WOUND CARE NURSE ORDERS. PT DENIES ANY PAIN AT THIS TIME. BLOOD SUGAR FOUND TO BE 122. NO SLIDING SCALE INSULIN NEEDED. SAFETY MEASURES IN PROGRESS.
--- NOTE | 2017-03-08 06:30 | NUR ---
NOTES; CALLED [facility] CARD CUTTER HELPER TO GIVE REPORT. PER CARD CUTTER HELPER NURSE " PT HAS TO GO TO [facility]." WAS UNABLE TO GET THE NAME OF NURSE BEFORE THE NURSE TRANSFERRED CALL TO [facility]. SPOKE WITH RECIEVING NURSE AT [facility], PT WILL BE TRANSFERRED TO [facility], ROOM 258 BET 1. PER NURSE , CALL BACK WITH REPORT. ENDORSED TO INCOMING NURSE HAYDEE JACKSON. Addendum: 03/08/17 at 0746 by Rosa Germain LVN AT 0700 ENDORSED TO INCOMING NURSE HUBBARD.
--- NOTE | 2017-03-08 07:09 | NUR ---
GOT A CALL FROM [facility] THAT COLLECTION COORDINATOR TIME WILL BE DELAYED BY 45MIN TO 60 MINS. ROXANNE CALLED AND GAVE THAT THE ASSIGNED CREW CALLED IN SICK.
--- NOTE | 2017-03-08 07:58 | NUR ---
DISCHARGE REPORT GIVEN TO ACOSTA AT [facility]. PT TO GO TO ROOM 258 BED 1. Addendum: 03/08/17 at 0807 by Sveta Philip RN ID BAND AND HEART MONITOR REMOVED. PT DISCHARGED TO [facility] IN NO ACUTE DISTRESS [facility]IA [facility]. ALL BELONGINGS SENT WITH PT AND PT ACCOMPANIED BY SON. PB WRAP TO BLE C/D/I, SL TO LT AC AND RT WRIST INTACT.
[2017-03-08] MEDS ORDERED: PANTOPRAZOLE GRANULES PACKET 40 MG GT SCH (09:00)
[2017-03-08] MEDS ORDERED: PANTOPRAZOLE SODIUM 40 MG TAB PO SCH (09:00)
== END 2017-03-08 08:00 | disposition short-term general hospital (02) | DRG 682 ==
LOC: SED 20:06 → STU 23:22
DX: N17.0 Acute kidney failure with tubular necrosis (principal); I50.21 Acute systolic (congestive) heart failure; E88.09 Other disorders of plasma-protein metabolism, not elsewhere classified; E11.22 Type 2 diabetes mellitus with diabetic chronic kidney disease; L03.119 Cellulitis of unspecified part of limb; N39.0 Urinary tract infection, site not specified; I13.0 Hypertensive heart and chronic kidney disease with heart failure and stage 1 through stage 4 chronic kidney disease, or unspecified chronic kidney disease; N18.4 Chronic kidney disease, stage 4 (severe); R94.39 Abnormal result of other cardiovascular function study; D64.9 Anemia, unspecified; J44.9 Chronic obstructive pulmonary disease, unspecified; I87.2 Venous insufficiency (chronic) (peripheral); R94.31 Abnormal electrocardiogram [ECG] [EKG]; Z91.14 Patient's other noncompliance with medication regimen; Z79.899 Other long term (current) drug therapy
CPT/HCPCS: 36415; 71010; 76770; 80053; 80061; 81000-TC; 82272; 82550-TC; 82962; 83605; 83690-TC; 83880; 84443-TC; 84484; 85025; 85610-TC; 87040-TC; 87086; 93005; 93017; 93306; 96365; 96375; 97116-GP; 99285; A9500; J0360; J0696; J1650; J1815; J1940; J2270; J2785; J3490; J7030; J7040; J7042; J7060; P9046